=== PATIENT | female | born 1980 | race African-American/Black ===

== ENCOUNTER 2019-11-27 06:15 | Day surgery (SDC) | payer SELFPAY ==
[2019-09-28 14:22] VITALS: BMI 30.5
[2019-11-27] MEDS ORDERED: MIDAZOLAM HCL 2 MG/2 ML SINGLE DOSE VIAL ONE (07:05)
[2019-11-27] MEDS ORDERED: LIDOCAINE HCL/PF 2% SDV 5ML VIAL ONE (07:05)
[2019-11-27] MEDS ORDERED: ROCURONIUM BROMIDE 50 MG/5 ML SYRINGE ONE ×2 (07:05→09:38)
[2019-11-27] MEDS ORDERED: PROPOFOL 20 ML ONE ×6 (07:05→12:58)
[2019-11-27] MEDS ORDERED: SUCCINYLCHOLINE CHLORIDE 200 MG/10 ML SYRINGE ONE (07:06)
[2019-11-27] MEDS ORDERED: HEPARIN NA (PORCINE) 5,000 UNITS/ML 1ML VIAL ONE (07:09)
[2019-11-27] MEDS ORDERED: EPINEPHrine/PF 1 MG/1 ML (1:1,000) AMPULE ONE (07:18)
[2019-11-27] MEDS ORDERED: BUPIVACAINE HCL/PF 2.5 MG/ML - 30 ML VIAL IJ ONE ×3 (07:18→09:47)
[2019-11-27] MEDS ORDERED: BACITRACIN 15 GM TUBE TOPICAL OINTMENT ONE (07:18)
[2019-11-27] MEDS ORDERED: BUPIVACAINE LIPOSOME/PF (EXPAREL) 266 MG/20 ML VIAL ONE (07:20)
[2019-11-27] MEDS ORDERED: SCOPOLAMINE HYDROBROMIDE 1 PATCH PATCH.TD72 ONE (07:30)
[2019-11-27] MEDS ORDERED: HEPARIN NA (PORCINE) 5,000 UNITS/ML 1ML VIAL SQ ONE (08:00)
[2019-11-27] MEDS ORDERED: SODIUM CHLORIDE 0.9% P/F 10 ML VIAL IJ ONE (08:01)
[2019-11-27] MEDS ORDERED: BUPIVACAINE HCL/PF 0.25% (2.5MG/ML) 10 ML VIAL ONE (08:03)
[2019-11-27] MEDS ORDERED: ONDANSETRON 4 MG/2 ML VIAL ONE ×2 (08:17→12:53)
[2019-11-27] MEDS ORDERED: DEXAMETHASONE SOD PHOSPHATE 4 MG/1 ML VIAL ONE (08:17)
[2019-11-27] MEDS ORDERED: ceFAZolin SODIUM 1 GM VIAL ONE ×2 (08:17→11:56)
[2019-11-27] MEDS ORDERED: KETOROLAC TROMETHAMINE 30 MG/1 ML VIAL ONE (08:17)
[2019-11-27] MEDS ORDERED: fentaNYL CITRATE 250 MCG/5 ML VIAL ONE (08:17)
[2019-11-27] MEDS ORDERED: EPHEDRINE SULFATE/0.9% NACL/PF 50 MG/10 ML SYRINGE NR ONE (08:54)
[2019-11-27] MEDS ORDERED: BUPIVACAINE LIPOSOME/PF (EXPAREL) 266 MG/20 ML VIAL NR ONE ×2 (09:11→09:47)
[2019-11-27] MEDS ORDERED: ONDANSETRON 4 MG/2 ML VIAL IVPB PRN (13:17)
[2019-11-27] MEDS ORDERED: MORPHINE SULFATE 2 MG/ML VIAL IVPUSH PRN (13:17)
--- NOTE | 2019-11-27 13:21 | OP ---
Operative Note - Note: Operative Date: 11/27/19 Pre-Operative Diagnosis: abdominal deformity Operation: abdominoplasty with trunk liposuction Post-Operative Diagnosis: Same as Pre-op Surgeon: Jerod Franklin Supervisor Typesetting: David Millan Anesthesia: General Operative Report Dictated: Yes
[2019-11-27] MEDS ORDERED: LACTATED RINGERS SOLUTION 1,000 ML IV SCH ×2 (13:30)
--- NOTE | 2019-11-27 14:23 | OP ---
DATE OF OPERATION: 11/27/2019 PROCEDURE: Abdominoplasty with midepigastric and flank liposuction. ATTENDING SURGEON: Jerod Franklin MD ANESTHESIA: General endotracheal anesthesia. SUPERVISOR RIDE ASSEMBLY: GRICELDA Ramirez DESCRIPTION OF PROCEDURE: The patient was marked in the holding area. All risks, benefits and alternatives to the procedure were discussed, understood and agreed to proceed. She was given 5000 units of subcutaneous heparin preoperatively, 2 g of Ancef preoperatively, brought to the operating room. MAI hose and sequential compression stockings were placed while the patient was awake. Machine was turned on. Patient was then positioned carefully with a pillow beneath the knees. All appropriate padding was used. After anesthesia was given, a Evans catheter was placed. She was prepped and draped in standard surgical fashion. A timeout was called. Patient, procedure, incision sites were verified. At this point incision was made at the infra-pannicular crease, dissection carried down to the level of the abdominal wall fascia. Dissection was then carried cephalad to the level of the umbilicus. Care was taken to remain superficially over the iliac crest. The umbilicus was then circumcised, developed on a fibrofatty stalk to its base along the abdominal wall fascia. Dissection was then continued cephalad to the xiphoid process in the midline, costal margins bilaterally. At this point the midline plication was then performed. This was done in 2 separate layers with a deep buried [id number] No. 1 Prolene suture followed by running locking Prolene suture both above and below the umbilicus. Lateral plication was likewise performed to treat a visible convexity. This was done with a running locking 0 Prolene suture with knots buried. The hemostasis was meticulously achieved. Patient was then brought to a 30-degree flexed position where excess skin and fat were marked and the excess was excised. Hemostasis was achieved again. The infraumbilical portion of the flap was then thinned with facelift scissors to the level of the Erik's fascia. Hemostasis was once again achieved and the flap and flanks were then infiltrated with a wetting solution. A total of 1500 mL of a wetting solution was given. Prior to this, Exparel was injected. A total of 20 mL of Exparel mixed with 40 mL of 0.25% Marcaine plain was injected into the rectus abdominis muscle, the abdominal wall fascia and the oblique muscles. At the completion of that, the wetting solution was infiltrated. Umbilicus was marked. Skin was tailor tacked while the wetting solution was being used. Wetting solution was each a liter of lactated Ringer's with an ampule of 1:1000 epinephrine which contained no lidocaine. The umbilicus was translocated through a Star Trek pattern and it was secured with a series of 3-0 nylon suture at the apices, buried deep dermal 3-0 Monocryl suture on the right and left sides and a running 5-0 chromic gut suture along the lateral limbs of the incision. Liposuction was then performed in each, the midepigastrium and bilateral flanks. Liposuctioned 250 mL from the upper flap in the midepigastrium and then additional 200 mL from each flank, a total of aspirate 650 mL was yielded. This was done using the safe technique with pre- and post-tunneling with a basket tip cannula without suction. The suction was performed with a 4-mm MicroAire power-assisted liposuction system. Closure was then performed. Two size 19 round drains were brought out through lateral extents of the incision. Closure was performed with a series of interrupted buried Erik's layer 2-0 Vicryl suture followed by a series of interrupted braided dermal 3-0 Monocryl suture followed by a running 3-0 mid-dermal V-Loc suture. All tissues were pink and viable. Drains were placed to bulb suction. A binder with ABD gauze dressings was applied over Steri-Strips. Biopatch was used on the drains. Patient awoke from anesthesia without bucking, placed in a compressive surgical garment, transferred to her hospital bed which was flexed and to recovery without complication. Dank [id number]
[2019-11-27] MEDS: CEFAZOLIN 1 GM/D5W 1 GM/50 ML BAG IVPB SCH (17:17)
[2019-11-27] MEDS: oxyCODONE HCL 5 MG TABLET PO PRN (21:33)
[2019-11-27] MEDS: ONDANSETRON 4 MG/2 ML VIAL IVPUSH PRN (21:34)
[2019-11-28] MEDS: CEFAZOLIN 1 GM/D5W 1 GM/50 ML BAG IVPB SCH ×2 (04:15→09:56)
[2019-11-28] MEDS: oxyCODONE HCL 5 MG TABLET PO PRN ×2 (04:16→10:10)
[2019-11-28] MEDS: ONDANSETRON 4 MG/2 ML VIAL IVPUSH PRN ×2 (05:04→10:10)
[2019-11-28] MEDS ORDERED: HEPARIN NA (PORCINE) 5,000 UNITS/ML 1ML VIAL SQ SCH ×2 (08:00)
--- NOTE | 2019-11-28 08:26 | PN ---
Progress Note (short form) - Note Progress Note: POD 1 healing well CLAY thin and functioning VS AF Abulating, sq heparin started. adequate UOP Abd soft and appropriate All tissues viable, no collections or infections OK for discharge with instructions
--- NOTE | 2019-11-28 13:01 | PN ---
Progress Note (short form) - Note Progress Note: 39F POD1 s/p abdominoplasty with liposuction under GA-ETT Pt states that pain is well controlled and reports no anesthetic complications. AVSS. Continue current regimen.
[2019-11-28 14:15] VITALS: BP 121/69; PULSE 67; TEMP 98.3
--- NOTE | 2019-11-29 14:58 | PATH ---
Surgical Pathology Report Patient Name: ROSALES PATRICK Med. Rec. #: [id number] /Age/Gender: 1980 (Age: 39) / F Account: [id number] [facility] Taken: 11/27/2019 Received: 11/27/2019 Reported: 11/29/2019 Physicians: Jerod Franklin Specimen(s) Received A: RIGHT ABDOMEN SKIN & TISSUE B: LEFT ABDOMEN SKIN & TISSUE Clinical History Cosmetic Final Diagnosis A. ABDOMEN SKIN AND TISSUE, RIGHT, ABDOMINOPLASTY: UNREMARKABLE SKIN AND FIBROADIPOSE TISSUE. MACROSCOPIC DIAGNOSIS. B. ABDOMEN SKIN AND TISSUE, LEFT, ABDOMINOPLASTY: UNREMARKABLE SKIN AND FIBROADIPOSE TISSUE. MACROSCOPIC DIAGNOSIS. Electronically Signed Elisabet Bangura M.D. Gross Description A. Received in formalin labeled "right abdomen skin and tissue," is a 1238 g, 26.0 x 25.0 x 6.5 cm pak-brown, triangular, unoriented portion of skin with underlying soft tissue. The epidermal surface is unremarkable. Sectioning reveals homogeneous yellow, lobulated adipose tissue. No lesions are identified. No sections are submitted, gross only. B. Received in formalin labeled "left abdomen skin and tissue," is a 1210 g, 27.0 x 21.5 x 5.0 cm pak-brown, triangular, unoriented portion of skin with underlying soft tissue. The epidermal surface is unremarkable. Sectioning reveals homogeneous yellow, lobulated adipose tissue. No lesions are identified. No sections are submitted, gross only. [facility]
== END 2019-11-28 13:00 | disposition home or self-care (01) ==
LOC: FASUSAT 06:15 → FM/S 16:36 → FASUSAT 11-28 13:00
PROVIDERS: ATTEND Plastic Surgery
PROC: 0J080ZZ Alteration of Abdomen Subcutaneous Tissue and Fascia, Open Approach (ICD-10-PCS; principal; 2019-11-27 08:37)
PROC: 0J083ZZ Alteration of Abdomen Subcutaneous Tissue and Fascia, Percutaneous Approach (ICD-10-PCS; 2019-11-27 08:37)
DX: Z41.1 Encounter for cosmetic surgery (principal)
CPT/HCPCS: 81025; 88300-TC; 94760; J1644